=== PATIENT | male | born 1965 | race Two or more races ===

== ENCOUNTER 2022-12-26 08:19 | Day surgery (SDC) | payer OTHER ==
[~2022-12-26] VITALS: Ht 167.6 cm; Wt 140.0 kg
[2022-12-26] VITALS (8 sets, daily range): BP systolic 152–199; BP diastolic 92–117; PULSE 71–91; RESP 11–18; TEMP 98.2; O2SAT 91–96
[~2022-12-26 08:19] MED LIST: FURO40TA4 PO; GABA-1250 PO; LOSA100T58 PO
[2022-12-26] MEDS ORDERED: fentaNYL CITRATE 100 MCG/2 ML VL ONE (11:45)
[2022-12-26] MEDS ORDERED: LIDOCAINE 2%HCL (LOCAL ANESTH.) INJ 20ML MDV ONE (11:45)
[2022-12-26] MEDS ORDERED: MIDAZOLAM HCL 2MG/2ML 2ml VIAL (1mg/ml) ONE (11:45)
[2022-12-26] MEDS ORDERED: ANGIOMAX 250 MG VIAL IV ONE (11:45)
[2022-12-26] MEDS ORDERED: VERAPAMIL 2.5MG/ML INJ 2ML VIAL IV ONE (11:45)
[2022-12-26] MEDS ORDERED: IODIXANOL 320MG/ML 100ML BTL IV ONE (11:46)
[2022-12-26] MEDS ORDERED: SODIUM CHL 0.9% 0 ML ONE (11:46)
[2022-12-26] MEDS ORDERED: HEPARIN SODIUM (PORCINE) 5000 UNITS/ML 1ML VIAL ONE (13:03)
== END 2022-12-26 15:13 | disposition home or self-care (01) ==
LOC: CATH 08:19
PROVIDERS: ATTEND Internal Medicine
DX: I25.10 Atherosclerotic heart disease of native coronary artery without angina pectoris (principal); R94.39 Abnormal result of other cardiovascular function study; E66.01 Morbid (severe) obesity due to excess calories; Z68.42 Body mass index [BMI] 45.0-49.9, adult; Z87.891 Personal history of nicotine dependence
CPT/HCPCS: 36600; 82805; 93458; C1757; C1769; C1894; J1644; J2250; J3010; Q9967; 99152

== ENCOUNTER 2023-12-17 14:00 | Emergency (ER) | payer MEDICAID, OTHER ==
[~2023-12-17 14:00] MED LIST changes: +LOSA-535 PO; -LOSA100T58 PO
[2023-12-17] MEDS: SODIUM CHLORIDE 0.9% 500 ML IVB ONE (14:14)
[2023-12-17 14:18] VITALS: PULSE 81; RESP 24; O2SAT 98
[2023-12-17 14:25] LABS: Basophils # (auto) 0.1 10 ^3/uL (0-0.2); Basophils % (auto) 0.4 % (0.0-2.0); Eosinophils # (auto) 0 10 ^3/uL (0-0.8); Hemoglobin 15.1 g/dL (13.5-17.5); Lymphocytes # (auto) 1.1 10 ^3/uL (0.4-5.4); Lymphocytes % (auto) 4.9 % (10.0-50.0); Mean Corpuscular Hemoglobin 27.2 pg (28.0-32.0); Mean Corpuscular Hgb Conc. 32.8 g/dL (32.0-36.0); Mean Corpuscular Volume 82.9 fL (80.0-100.0); Monocytes # (auto) 0.9 10 ^3/uL (0-1.3); Monocytes % (auto) 4.1 % (0.0-12.0); Neutrophils # (auto) 20.8 10 ^3/uL (1.6-8.6); Neutrophils % (auto) 90.6 % (37.0-80.0); Red Blood Cells 5.55 10^6/uL (4.5-5.90); Red Cell Distribution Width 15.7 % (11.8-14.3)
[2023-12-17 14:34] LABS: Chloride 103 mmol/L (98-107); Potassium 3.4 mmol/L (3.5-5.1); Sodium 141 mmol/L (136-145)
[2023-12-17 14:35] LABS: Anion Gap 18 (5-15); Calcium 9.4 mg/dL (8.7-10.4); Carbon Dioxide 20 mmol/L (20-30)
[2023-12-17] MEDS: IOHEXOL 300 MG/ML 100ML BOTTLE IJ ONE (14:38)
[2023-12-17 14:40] LABS: BUN/Creatinine Ratio 12.1 (10.0-20.0); Blood Urea Nitrogen 21 mg/dL (9-23); Glucose 327 mg/dL (74-106); Lipase 28 U/L (12-53)
[2023-12-17 14:41] LABS: INR 1.13 (0.9-1.15); Partial Thromboplastin Time 24.8 SEC (24.5-34.5); Prothrombin Time 11.9 sec (9.3-11.8)
[2023-12-17] MEDS: NOREPINEPHRINE 8 MG/250ML KIT 250 ML IV ONE (14:57)
[2023-12-17] MEDS: NOREPINEPHRINE 8 MG/250ML KIT 250 ML IV SCH (15:00)
[2023-12-17 16:30] VITALS: BP 105/47; PULSE 97; RESP 24; TEMP 97.6; O2SAT 98
== END 2023-12-17 15:26 | disposition short-term general hospital (02) ==
LOC: EDBD 14:00 → ER 14:02
DX: I71.00 Dissection of unspecified site of aorta (principal); K80.20 Calculus of gallbladder without cholecystitis without obstruction; R79.89 Other specified abnormal findings of blood chemistry; I48.91 Unspecified atrial fibrillation; R07.9 Chest pain, unspecified; I10 Essential (primary) hypertension
CPT/HCPCS: 36415; 71260; 74177; 80048; 80320; 83690; 84484; 85025; 85379; 85610; 85730; 86850; 86900; 86901; 93005; 96361; 96365; 99291; J7040; Q9967

== ENCOUNTER 2023-12-28 04:48 | Inpatient (IN) | payer MEDICAID ==
[~2023-12-28] VITALS: Ht 167.6 cm; Wt 158.8 kg
[2023-12-28] MEDS: IPRATROPIUM BROM 0.5 MG/2.5ML INH SOL NEB ONE (05:53)
[2023-12-28] MEDS: ALBUTEROL SULF 2.5 MG/0.5ML(0.5%) NEB SOLN NEB ONE (05:53)
[2023-12-28 06:41] VITALS: PULSE 75; RESP 14; O2SAT 98
[2023-12-28] MEDS: FUROSEMIDE 40 MG/4 ML VIAL IV ONE (06:52)
[2023-12-28 07:01] LABS: Basophils # (auto) 0 10 ^3/uL (0-0.2); Basophils % (auto) 0.3 % (0.0-2.0); Eosinophils # (auto) 0.1 10 ^3/uL (0-0.8); Eosinophils % (auto) 0.5 % (0.0-7.0); Hematocrit 26.8 % (41.0-53.0); Hemoglobin 8.7 g/dL (13.5-17.5); Lymphocytes # (auto) 1.1 10 ^3/uL (0.4-5.4); Lymphocytes % (auto) 7.7 % (10.0-50.0); Mean Corpuscular Hemoglobin 27.3 pg (28.0-32.0); Mean Corpuscular Hgb Conc. 32.6 g/dL (32.0-36.0); Mean Corpuscular Volume 83.9 fL (80.0-100.0); Monocytes # (auto) 0.9 10 ^3/uL (0-1.3); Monocytes % (auto) 6.3 % (0.0-12.0); Neutrophils # (auto) 12.4 10 ^3/uL (1.6-8.6); Neutrophils % (auto) 85.2 % (37.0-80.0); Red Blood Cells 3.19 10^6/uL (4.5-5.90); Red Cell Distribution Width 16.1 % (11.8-14.3); White Blood Cell 14.5 10^3/uL (4.4-10.8)
[2023-12-28 07:05] LABS: Potassium 3.8 mmol/L (3.5-5.1); Sodium 136 mmol/L (136-145)
[2023-12-28 07:06] LABS: Calcium 8.8 mg/dL (8.7-10.4); Carbon Dioxide 28 mmol/L (20-30)
[2023-12-28 07:11] LABS: BUN/Creatinine Ratio 33.3 (10.0-20.0); Blood Urea Nitrogen 56 mg/dL (9-23); Glucose 138 mg/dL (74-106)
[2023-12-28 07:14] LABS: Anion Gap 8 (5-15); Chloride 100 mmol/L (98-107)
[2023-12-28 08:00] VITALS: PULSE 76; RESP 21; O2SAT 94
[2023-12-28 08:30] LABS: Urine Bacteria FEW /hpf (None Seen); Urine Blood Negative /uL (Negative); Urine Clarity Clear (Clear); Urine Color Light-Yellow (Yellow); Urine Hyaline Cast FEW /lpf (0 - 2); Urine Protein, UAD Negative (Negative); Urine Urobilinogen Normal (Negative); Urine WBC <1 /hpf (0 - 3)
[2023-12-28] MEDS ORDERED: NITROGLYCERIN 0.4 MG SL TAB SL PRN (12:00)
[2023-12-28] MEDS ORDERED: MORPHINE SULFATE INJ 2 MG/ml SYRG IV PRN ×2 (12:00)
[2023-12-28] MEDS ORDERED: ONDANSETRON HCL 4 MG/2 ML VIAL IV PRN (12:00)
[2023-12-28 13:30] VITALS: BP 125/70; PULSE 74; RESP 18; TEMP 98.4; O2SAT 98
[2023-12-28] MEDS: HYDROcodone-ACET 5/325MG TAB PO PRN (16:58)
[2023-12-28] MEDS: FUROSEMIDE 40 MG/4 ML VIAL IV SCH (18:28)
[2023-12-28 20:00] VITALS: PULSE 73
[2023-12-28 21:00] VITALS: BP 101/54; PULSE 80; RESP 22; TEMP 98.1; O2SAT 98
[2023-12-28] MEDS ORDERED: POLYPOW89 PO (21:16)
[2023-12-28] MEDS ORDERED: ASPI-325 PO (21:16)
[2023-12-28] MEDS ORDERED: CARV6.2551 PO (21:16)
[2023-12-28] MEDS ORDERED: PANT40T PO (21:16)
[2023-12-28] MEDS ORDERED: SENN-58 PO (21:21)
[2023-12-28] MEDS ORDERED: POLY335015 PO (21:21)
[2023-12-28] MEDS ORDERED: POLYETHYLENE GLYCOL 17 GM PWDR PO PRN (21:30)
[2023-12-28] MEDS ORDERED: SENNA 8.6 MG TAB PO PRN (21:30)
[2023-12-28 23:05] VITALS: PULSE 82; O2SAT 98
[2023-12-29] VITALS (15 sets, daily range): BP systolic 103–159; BP diastolic 51–93; PULSE 65–81; RESP 17–22; TEMP 97.8–98.4; O2SAT 95–100
[2023-12-29] MEDS: PANTOPRAZOLE 40 MG TAB PO SCH (00:35)
[2023-12-29] MEDS: CARVEDILOL 3.125 MG TAB PO SCH (00:36)
[2023-12-29] MEDS: DOCUSATE SOD 100 MG CAP PO PRN (00:36)
[2023-12-29] MEDS: ALBUTEROL SULF 2.5 MG/0.5ML(0.5%) NEB SOLN NEB PRN (03:13)
[2023-12-29 06:24] LABS: Alanine Aminotransferase 93 U/L (7-40); Albumin 3.5 g/dL (3.2-4.8); Alkaline Phosphatase 62 U/L (46-116); Anion Gap 6 (5-15); Aspartate Aminotransferase 64 U/L (13-40); BUN/Creatinine Ratio 33.3 (10.0-20.0); Bilirubin, Total 0.6 mg/dL (0.2-1.0); Blood Urea Nitrogen 50 mg/dL (9-23); Calcium 8.7 mg/dL (8.7-10.4); Carbon Dioxide 30 mmol/L (20-30); Chloride 102 mmol/L (98-107); Glucose 124 mg/dL (74-106); Potassium 3.6 mmol/L (3.5-5.1); Sodium 138 mmol/L (136-145); Total Protein 5.8 g/dL (5.7-8.2)
[2023-12-29 06:29] LABS: Basophils # (auto) 0 10 ^3/uL (0-0.2); Eosinophils # (auto) 0.1 10 ^3/uL (0-0.8); Eosinophils % (auto) 1.2 % (0.0-7.0); Hemoglobin 7.8 g/dL (13.5-17.5); Mean Corpuscular Hemoglobin 27.4 pg (28.0-32.0); Neutrophils # (auto) 9.1 10 ^3/uL (1.6-8.6); Nucleated Red Blood Cells % 0.1 %
[2023-12-29 06:36] LABS: Basophils % (auto) 0.2 % (0.0-2.0); Hematocrit 23.8 % (41.0-53.0); Lymphocytes # (auto) 1.3 10 ^3/uL (0.4-5.4); Lymphocytes % (auto) 11.2 % (10.0-50.0); Mean Corpuscular Hgb Conc. 32.7 g/dL (32.0-36.0); Mean Corpuscular Volume 83.8 fL (80.0-100.0); Monocytes # (auto) 1.1 10 ^3/uL (0-1.3); Monocytes % (auto) 9.5 % (0.0-12.0); Neutrophils % (auto) 77.9 % (37.0-80.0); Red Blood Cells 2.85 10^6/uL (4.5-5.90); Red Cell Distribution Width 16.4 % (11.8-14.3); White Blood Cell 11.7 10^3/uL (4.4-10.8)
[2023-12-29] MEDS: ASPirin-EC 81 mg tab PO SCH (09:41)
[2023-12-29] MEDS: ENOXAPARIN SOD 40 MG/0.4 ML SYRINGE SC SCH (09:42)
[2023-12-29] MEDS ORDERED: ACETYLCYSTEINE 20%(200MG/ML) SOL 4ML NEB SCH (10:15)
[2023-12-29] MEDS: ACETYLCYSTEINE 20%(200MG/ML) SOL 4ML NEB SCH (14:00)
[2023-12-30] VITALS (14 sets, daily range): BP systolic 96–130; BP diastolic 56–77; PULSE 65–81; RESP 18–22; TEMP 98–98.9; O2SAT 96–100
[2023-12-30] MEDS: ACETAMINOPHEN 325 MG TAB PO PRN (05:24)
[2023-12-30 14:48] LABS: Basophils # (auto) 0 10 ^3/uL (0-0.2); Eosinophils # (auto) 0.1 10 ^3/uL (0-0.8); Eosinophils % (auto) 1.3 % (0.0-7.0); Hemoglobin 8.2 g/dL (13.5-17.5); Mean Corpuscular Volume 83.9 fL (80.0-100.0)
[2023-12-30 14:49] LABS: Basophils % (auto) 0.4 % (0.0-2.0); Hematocrit 25.3 % (41.0-53.0); Lymphocytes # (auto) 1.2 10 ^3/uL (0.4-5.4); Lymphocytes % (auto) 11.7 % (10.0-50.0); Mean Corpuscular Hemoglobin 27.1 pg (28.0-32.0); Mean Corpuscular Hgb Conc. 32.3 g/dL (32.0-36.0); Monocytes # (auto) 1.2 10 ^3/uL (0-1.3); Monocytes % (auto) 11.3 % (0.0-12.0); Neutrophils # (auto) 7.9 10 ^3/uL (1.6-8.6); Neutrophils % (auto) 75.3 % (37.0-80.0); Red Blood Cells 3.01 10^6/uL (4.5-5.90); Red Cell Distribution Width 16.1 % (11.8-14.3); White Blood Cell 10.5 10^3/uL (4.4-10.8)
[2023-12-31] VITALS (16 sets, daily range): BP systolic 99–122; BP diastolic 58–78; PULSE 67–84; RESP 16–21; TEMP 97.8–98.5; O2SAT 93–100
[2024-01-01] VITALS (15 sets, daily range): BP systolic 91–125; BP diastolic 56–71; PULSE 72–90; RESP 18–20; TEMP 98.2–99; O2SAT 94–100
[2024-01-02 05:00] VITALS: BP 138/71; PULSE 79; RESP 18; TEMP 98.4; O2SAT 98
[2024-01-02 07:01] VITALS: O2SAT 96
[2024-01-02 08:00] VITALS: PULSE 81
[2024-01-02 08:44] VITALS: BP 108/57; PULSE 80; RESP 18; TEMP 98.3; O2SAT 99
[2024-01-02 08:52] VITALS: BP 108/57; PULSE 80; RESP 18; TEMP 98.3; O2SAT 99
== END 2024-01-02 10:47 | DRG 133 ==
LOC: ER 04:48 → TELE 12:04 → TELE-WESTW 17:50
PROVIDERS: ADMIT Internal Medicine; ATTEND Internal Medicine
PROC: 5A09357 Assistance with Respiratory Ventilation, Less than 24 Consecutive Hours, Continuous Positive Airway Pressure (ICD-10-PCS; principal; 2023-12-28)
PROC: 5A09357 Assistance with Respiratory Ventilation, Less than 24 Consecutive Hours, Continuous Positive Airway Pressure (ICD-10-PCS; 2023-12-29)
PROC: 5A09357 Assistance with Respiratory Ventilation, Less than 24 Consecutive Hours, Continuous Positive Airway Pressure (ICD-10-PCS; 2023-12-30)
PROC: 5A09357 Assistance with Respiratory Ventilation, Less than 24 Consecutive Hours, Continuous Positive Airway Pressure (ICD-10-PCS; 2023-12-31)
PROC: 5A09357 Assistance with Respiratory Ventilation, Less than 24 Consecutive Hours, Continuous Positive Airway Pressure (ICD-10-PCS; 2024-01-01)
DX: J96.21 Acute and chronic respiratory failure with hypoxia (principal); N17.0 Acute kidney failure with tubular necrosis; I50.33 Acute on chronic diastolic (congestive) heart failure; E66.2 Morbid (severe) obesity with alveolar hypoventilation; Z68.43 Body mass index [BMI] 50.0-59.9, adult; C34.91 Malignant neoplasm of unspecified part of right bronchus or lung; D64.9 Anemia, unspecified; I11.0 Hypertensive heart disease with heart failure; D72.829 Elevated white blood cell count, unspecified; Z99.81 Dependence on supplemental oxygen; Z90.2 Acquired absence of lung [part of]; Z82.49 Family history of ischemic heart disease and other diseases of the circulatory system
CPT/HCPCS: 36415; 70450; 71045; 78582; 80048; 80053; 81001; 83036; 83880; 84484; 85025; 85379; 93306; 93970; 94640; 94660; 96374; 96376; 97110; 97116; 97163; 97530; 99291; G0378